=== PATIENT | male | born 1990 | race Caucasian/White ===

== ENCOUNTER → 2020-02-20 | Outpatient (CLI) | payer BC ==
[~2020-02-20] MED LIST: BACTRIM DS 8001 TA1 PO; KEFLEX500 MG PO; MOTRIN800 MG PO; NKHM
== END | disposition home or self-care (01) ==
LOC: COVID19 12:59
PROVIDERS: ATTEND Internal Medicine
DX: U07.1 COVID-19 (principal)

== ENCOUNTER 2024-08-20 16:22 | Emergency (ER) | payer BC ==
[~2024-08-20] VITALS: Ht 180.3 cm; Wt 77.1 kg
[2024-08-20] MEDS ORDERED: Ketorolac Tromethamine 60 MG/2 ML VIAL IM ONE (17:05)
[2024-08-20] MEDS ORDERED: NAPROSYN500 MG PO (18:26)
== END 2024-08-20 18:31 | disposition home or self-care (01) ==
LOC: ED 16:22
DX: S46.212A Strain of muscle, fascia and tendon of other parts of biceps, left arm, initial encounter (principal); X50.0XXA Overexertion from strenuous movement or load, initial encounter; Y93.89 Activity, other specified; Y92.89 Other specified places as the place of occurrence of the external cause; Y99.8 Other external cause status